=== PATIENT | male | born 1955 | race Caucasian/White ===

== ENCOUNTER 2023-11-23 13:02 | Emergency (ER) | payer MEDICARE ==
[2023-11-23] MEDS ORDERED: LEVETIRACETAM (500MG) 1,000 MG in IV NS 0.9% 90 ML IV STA (13:03)
[2023-11-23] MEDS: IV NS 0.9% 1,000 ML BAG IV ONE (13:40)
[2023-11-23 13:41] LABS: BASOPHILS # (AUTO) 0.1 K/uL (0.0-0.2); BASOPHILS % (AUTO) 0.9 % (0.0-2.0); EOSINOPHILS # (AUTO) 0.1 K/uL (0.0-0.7); EOSINOPHILS % (AUTO) 1.3 % (0.0-6.0); HEMATOCRIT 46 % (39-51); LYMPHOCYTES # (AUTO) 2.3 K/uL (0.8-4.8); LYMPHOCYTES % (AUTO) 26.7 % (20.0-44.0); MEAN CORPUSCULAR HEMOGLOBIN 30 PG (26.0-33.0); MEAN CORPUSCULAR HGB CONC 33 g/dl (31.0-36.0); MEAN CORPUSCULAR VOLUME 93 fL (80-96); MONOCYTES # (AUTO) 0.8 K/uL (0.1-1.30); MONOCYTES % (AUTO) 9.4 % (2.0-12.0); NEUTROPHILS # (AUTO) 5.4 K/uL (1.8-8.9); NEUTROPHILS % (AUTO) 61.7 % (43.0-81.0); PLATELET COUNT (AUTO) 155 K/uL (150-450); RED CELL DISTRIBUTION WIDTH 13.9 % (11.5-15.0); WHITE BLOOD COUNT (AUTO) 8.7 K/uL (4.3-11.0)
[2023-11-23 13:48] LABS: CALCIUM, SERUM 8.7 mg/dL (8.5-10.1); CREATININE 1.5 mg/dL (0.6-1.3); POTASSIUM 3.7 mmol/L (3.5-5.1)
[2023-11-23] MEDS ORDERED: HYDROMORPHONE 1 MG/1 ML DISP.SYRIN ONE (16:17)
[2023-11-23] MEDS: HYDROMORPHONE 1 MG/1 ML DISP.SYRIN IV ONE (16:20)
[2023-11-23 17:09] VITALS: BP 138/82; TEMP 98; O2SAT 98
== END 2023-11-23 17:10 | disposition home or self-care (01) ==
LOC: ER 13:05
DX: R56.9 Unspecified convulsions (principal); G89.29 Other chronic pain; I48.91 Unspecified atrial fibrillation; N18.9 Chronic kidney disease, unspecified; I25.10 Atherosclerotic heart disease of native coronary artery without angina pectoris; I10 Essential (primary) hypertension; E78.5 Hyperlipidemia, unspecified
CPT/HCPCS: 99285; 96374; 71045; 96361; 93005; 85025; 80048; 36415; 82962; J7030 ×2; J1953; J1170

== ENCOUNTER 2023-12-11 02:33 | Inpatient (IN) | payer MEDICARE ==
[~2023-12-11] VITALS: Ht 182.9 cm; Wt 85.3 kg
[2023-12-11] MEDS ORDERED: MORPHINE SULFATE INJ 4 MG/ML DISP.SYRIN ONE (03:02)
[2023-12-11] MEDS: MORPHINE SULFATE INJ 2 MG/ML DISP.SYRIN IV ONE ×2 (03:06→07:48)
[2023-12-11 03:32] LABS: BASOPHILS % (AUTO) 0.4 % (0.0-2.0); EOSINOPHILS # (AUTO) 0.2 K/uL (0.0-0.7); EOSINOPHILS % (AUTO) 2.9 % (0.0-6.0); HEMATOCRIT 40 % (39-51); HEMOGLOBIN 13.3 g/dL (13.5-17.5); LYMPHOCYTES # (AUTO) 2.5 K/uL (0.8-4.8); LYMPHOCYTES % (AUTO) 32.3 % (20.0-44.0); MEAN CORPUSCULAR HEMOGLOBIN 31 PG (26.0-33.0); MEAN CORPUSCULAR HGB CONC 33 g/dl (31.0-36.0); MEAN CORPUSCULAR VOLUME 93 fL (80-96); MONOCYTES # (AUTO) 0.6 K/uL (0.1-1.30); MONOCYTES % (AUTO) 7.8 % (2.0-12.0); NEUTROPHILS # (AUTO) 4.3 K/uL (1.8-8.9); NEUTROPHILS % (AUTO) 56.6 % (43.0-81.0); PLATELET COUNT (AUTO) 138 K/uL (150-450); RED BLOOD CELL COUNT(AUTO) 4.32 MIL/uL (4.5-6.0); RED CELL DISTRIBUTION WIDTH 15.3 % (11.5-15.0); WHITE BLOOD COUNT (AUTO) 7.6 K/uL (4.3-11.0)
[2023-12-11 03:34] LABS: CALCIUM, SERUM 8.5 mg/dL (8.5-10.1); CARBON DIOXIDE 24 mmol/L (21-32); CHLORIDE 105 mmol/L (98-107); CREATININE 1.6 mg/dL (0.6-1.3); GLUCOSE 105 mg/dL (74-106); POTASSIUM 4.6 mmol/L (3.5-5.1); SODIUM SERUM 139 mmol/L (136-145); UREA NITROGEN, BLOOD 25 mg/dL (7-18)
[2023-12-11 03:38] LABS: INR 1.08 (0.91-1.10); PARTIAL THROMBOPLASTIN TIME 25.9 SEC (24.3-34.3); PROTHROMBIN TIME 11.4 SECS (9.2-11.1)
[2023-12-11 03:45] LABS: ALANINE AMINOTRANSFERASE 31 U/L (12-78); ALBUMIN 3.3 g/dL (3.4-5.0); ALKALINE PHOSPHATASE 82 U/L (46-116); ASPARTATE AMINOTRANSFERASE 22 U/L (15-37); BILIRUBIN,DIRECT 0.1 mg/dL (0.0-0.2); BILIRUBIN,TOTAL 0.4 mg/dL (0.2-1.0); NT-PRO BNP 687 pg/mL (0-125); TOTAL PROTEIN, SERUM 6.8 g/dL (6.4-8.2)
[2023-12-11] MEDS ORDERED: MORPHINE SULFATE INJ 2 MG/ML DISP.SYRIN ONE (07:36)
[2023-12-11] MEDS ORDERED: SPIR25TA6 PO (09:20)
[2023-12-11] MEDS ORDERED: POLY17PO4 PO (09:20)
[2023-12-11] MEDS ORDERED: HYDR-4209 PO (09:20)
[2023-12-11] MEDS ORDERED: OMEP40CA21 PO (09:20)
[2023-12-11] MEDS ORDERED: NALO4SPR NS (09:20)
[2023-12-11] MEDS ORDERED: APIX5TAB PO (09:20)
[2023-12-11] MEDS ORDERED: METO50TA16 PO (09:20)
[2023-12-11] MEDS ORDERED: LEVO50TA8 PO (09:20)
[2023-12-11] MEDS ORDERED: LOSA50TA39 PO (09:20)
[2023-12-11] MEDS ORDERED: ATOR80TA PO (09:20)
[2023-12-11] MEDS ORDERED: AMIO200T5 PO (09:20)
[2023-12-11] MEDS ORDERED: IOHEXOL-350 100 ML VIAL IV ONE (11:17)
[2023-12-11] MEDS ORDERED: IV NS 0.9% 250 ML IV ONE (11:17)
[2023-12-11] MEDS ORDERED: HYDROCODONE/APAP 5/325MG TABLET PO PRN (13:00)
[2023-12-11] MEDS: HYDROMORPHONE 1 MG/1 ML DISP.SYRIN IV PRN (13:07)
[2023-12-11] MEDS ORDERED: ACETAMINOPHEN 325 MG TABLET PO PRN (13:30)
[2023-12-11] MEDS ORDERED: MAGNESIUM HYDROXIDE 30 ML UDC PO PRN (13:30)
[2023-12-11] MEDS ORDERED: ONDANSETRON HCL/PF 4 MG/2 ML VIAL IVP PRN (13:30)
[2023-12-11] MEDS: LOSARTAN POTASSIUM 50 MG TABLET PO SCH (14:06)
[2023-12-11] MEDS: LEVOTHYROXINE SODIUM 50 MCG TABLET PO SCH (14:09)
[2023-12-11] MEDS: AMIODARONE HCL 200 MG TABLET PO SCH (14:09)
[2023-12-11] MEDS: METOPROLOL TARTRATE 50 MG TABLET PO SCH (14:09)
[2023-12-11] MEDS: APIXABAN 5 MG TABLET PO SCH (14:09)
[2023-12-11] MEDS: SPIRONOLACTONE 25 MG TABLET PO SCH (14:10)
[2023-12-11] MEDS: NITROGLYCERIN 30 GM TUBE TP SCH (14:10)
[2023-12-11 16:00] VITALS: BP 123/79; TEMP 97.3; O2SAT 94
[2023-12-11 20:00] VITALS: BP 128/73; TEMP 98.1; O2SAT 97
[2023-12-11] MEDS: LEVETIRACETAM (250 MG) 250 MG TABLET PO SCH (21:26)
[2023-12-12] VITALS: BP 124/70; TEMP 98.3; O2SAT 97
[2023-12-12] MEDS: FUROSEMIDE 20 MG/2 ML VIAL IV SCH (01:20)
[2023-12-12 04:00] VITALS: BP 110/72; TEMP 98; O2SAT 98
[2023-12-12 08:00] VITALS: BP 137/93; TEMP 97.5; O2SAT 93
[2023-12-12 08:16] LABS: BASOPHILS % (AUTO) 0.4 % (0.0-2.0); EOSINOPHILS # (AUTO) 0.2 K/uL (0.0-0.7); EOSINOPHILS % (AUTO) 2.1 % (0.0-6.0); HEMATOCRIT 41 % (39-51); HEMOGLOBIN 13.5 g/dL (13.5-17.5); LYMPHOCYTES # (AUTO) 1.4 K/uL (0.8-4.8); LYMPHOCYTES % (AUTO) 14.9 % (20.0-44.0); MEAN CORPUSCULAR HEMOGLOBIN 32 PG (26.0-33.0); MEAN CORPUSCULAR HGB CONC 33 g/dl (31.0-36.0); MEAN CORPUSCULAR VOLUME 95 fL (80-96); MONOCYTES # (AUTO) 0.9 K/uL (0.1-1.30); MONOCYTES % (AUTO) 9.9 % (2.0-12.0); NEUTROPHILS # (AUTO) 6.9 K/uL (1.8-8.9); NEUTROPHILS % (AUTO) 72.7 % (43.0-81.0); PLATELET COUNT (AUTO) 133 K/uL (150-450); RED BLOOD CELL COUNT(AUTO) 4.27 MIL/uL (4.5-6.0); RED CELL DISTRIBUTION WIDTH 15.2 % (11.5-15.0); WHITE BLOOD COUNT (AUTO) 9.4 K/uL (4.3-11.0)
[2023-12-12 08:42] LABS: ALBUMIN 3.3 g/dL (3.4-5.0); BILIRUBIN,TOTAL 0.7 mg/dL (0.2-1.0); CALCIUM, SERUM 8.8 mg/dL (8.5-10.1); PHOSPHORUS 2.5 mg/dL (2.5-4.9); POTASSIUM 4.5 mmol/L (3.5-5.1); TOTAL PROTEIN, SERUM 7.2 g/dL (6.4-8.2)
[2023-12-12] MEDS: PANTOPRAZOLE 40 MG TABLET.DR PO SCH (09:01)
[2023-12-12] MEDS: ASPIRIN 81 MG TAB.CHEW PO SCH (09:01)
[2023-12-12] MEDS: ATORVASTATIN 40 MG TABLET PO SCH (09:01)
[2023-12-12 09:05] VITALS: BP 137/93
== END 2023-12-12 09:31 | disposition left against medical advice (07) | DRG 291 ==
LOC: ER 02:40 → TELE1 08:33
PROVIDERS: ADMIT Nurse Practitioner Family; ATTEND Nurse Practitioner Family
DX: I13.0 Hypertensive heart and chronic kidney disease with heart failure and stage 1 through stage 4 chronic kidney disease, or unspecified chronic kidney disease (principal); I50.31 Acute diastolic (congestive) heart failure; N17.9 Acute kidney failure, unspecified; E44.1 Mild protein-calorie malnutrition; R07.9 Chest pain, unspecified; D64.9 Anemia, unspecified; E78.5 Hyperlipidemia, unspecified; E88.09 Other disorders of plasma-protein metabolism, not elsewhere classified; G40.909 Epilepsy, unspecified, not intractable, without status epilepticus; I48.91 Unspecified atrial fibrillation; Z79.01 Long term (current) use of anticoagulants; Z85.528 Personal history of other malignant neoplasm of kidney; Z90.5 Acquired absence of kidney; Z85.51 Personal history of malignant neoplasm of bladder; I25.10 Atherosclerotic heart disease of native coronary artery without angina pectoris; Z20.822 Contact with and (suspected) exposure to COVID-19; N18.9 Chronic kidney disease, unspecified; Z68.25 Body mass index [BMI] 25.0-25.9, adult
CPT/HCPCS: 36415; 71045-TC; 80048-TC; 80053-TC; 80061-TC; 80076-TC; 83735-TC; 83880; 84100-TC; 84484-TC; 85025-TC; 85730-TC; 93307-TC; G0378; J1170; J1940; J2270; J7050; Q9967